=== PATIENT | female | born 1960 | race Caucasian/White ===

== ENCOUNTER → 2022-10-15 | Outpatient (CLI) | payer MEDICARE, MEDICAID ==
[~2022-10-15] VITALS: Ht 175.3 cm; Wt 67.1 kg
[~2022-10-15] MED LIST: ALBU90AE2 IH; BUDE10.2 IH; CARB-254 OP; DICL20GE TP; GABA300S2 PO; LORA10CA PO; MIRT-68 PO; MULT-567 PO; OXCA300T18 PO; ROSU5TAB13 PO; TIOT18CA2 IH
== END | disposition home or self-care (01) ==
LOC: PREOP 05:37
PROVIDERS: ATTEND Surgery
DX: Z01.818 Encounter for other preprocedural examination (principal); R19.5 Other fecal abnormalities; Z80.0 Family history of malignant neoplasm of digestive organs

== ENCOUNTER 2022-10-27 06:32 | Day surgery (SDC) | payer MEDICARE, MEDICAID ==
[~2022-10-27] VITALS: Ht 175.3 cm; Wt 67.1 kg
[2022-10-27] MEDS ORDERED: LACTATED RINGERS 1,000 ML IV STA (07:08)
[2022-10-27 07:17] VITALS: BP 113/69
[2022-10-27] MEDS ORDERED: PROPOFOL INJECTION 50 ML IV ONE (07:22)
[2022-10-27] MEDS ORDERED: MIDAZOLAM 2 MG/2 ML (VERSED) VIAL ONE (07:22)
[2022-10-27 08:05] VITALS: BP 105/54
--- NOTE | 2022-10-27 08:07 | Progress Note-Post Operative ---
Post-Operative Progess Note Surgeon (s)/Analysis Mgr (s) Surgeon TEGAN MENDOZA DO Analysis Mgr: n/a Pre-Operative Diagnosis positive cologuard, family hx colon cancer Post-Operative Diagnosis diverticulosis, colon polyps Procedure & Operative Findings Date of Procedure 10/27/22 Procedure Performed/Findings colonoscopy with hot biopsy polypectomy x3 Anesthesia Type per air traffic systems technician Estimated Blood Loss Estimated blood loss (mL): none Specimens/Packing Specimens Removed colon polyps TEGAN MENDOZA DO Oct 27, 2022 08:07
--- NOTE | 2022-10-27 08:08 | Discharge Inst-Simple/Standard ---
Discharge Inst-Standard Reconcile Patient Problems Problems Reviewed?: Yes Patient Instructions/Follow Up Plan of Care/Instructions/FU: f/u [address] Diaz Activity as Tolerated: Yes Discharge Diet: No Restrictions, Other Diet (high fiber) TEGAN DIAZ DO Oct 27, 2022 08:08
[2022-10-27 08:10] VITALS: BP 112/55
[2022-10-27 08:15] VITALS: BP 123/61
[2022-10-27 09:15] VITALS: BP 123/61
--- NOTE | 2022-10-27 13:00 | OPERATIVE REPORT ---
DATE OF SERVICE: 10/27/2022 PREOPERATIVE DIAGNOSIS: Positive Cologuard. POSTOPERATIVE DIAGNOSES: Colon polyps, diverticulosis. PROCEDURE: Colonoscopy with hot biopsy polypectomy x3. SURGEON: Tegan Diaz DO ANESTHESIA: Per INFUSION NURSE. ESTIMATED BLOOD LOSS: None. COMPLICATIONS: None. INDICATIONS: The patient is a 62-year-old female with positive Cologuard test. She understands risks and benefits of procedure and wished to proceed. Consent was signed in chart. DESCRIPTION OF PROCEDURE: The patient was taken to endoscopy suite, placed in left lateral recumbent position. Timeout was performed. Digital rectal exam was performed. No palpable polyps, masses or ulcerations. Scope was inserted in the rectum, advanced all the way to the cecum with minimal difficulty. Prep was adequate with irrigation and suction. Scope was slowly retracted back. No polyps, masses or ulcerations in the cecum. In the ascending colon, 2 polyps were present, which hot biopsy polypectomy was performed. Scope was then continuously retracted back. No polyps, masses or ulcerations within the remainder of the ascending, transverse, or descending colon. In the sigmoid colon, a flat polyp was present, which hot biopsy polypectomy was performed. Scope was then continuously retracted back into the rectum were there was no other polyps, masses or ulcerations. Scope was retroflexed in no other pathology. Scope was returned to its normal position, slowly withdrawn until completely removed. Throughout the colon, a minimal amount diverticulosis was present. RECOMMENDATIONS: The patient will need repeat colonoscopy in 3-5 years depending on pathology. For reevaluation, we will recommend high fiber diet due to diverticulosis. The patient will follow up in 2 weeks. Any issues before that, be seen at that time. Job ID: [id number] DocumentID: [id number] Dictated Date: 10/27/2022 08:45:59 Internet Marketing Coordinator Date: 10/27/2022 12:58:00 Dictated By: TEGAN DIAZ DO
--- NOTE | 2022-10-27 13:14 | Anesthesia-General Post-Op ---
MAC Patient Condition Mental Status/LOC: Same as Preop Cardiovascular: Satisfactory Nausea/Vomiting: Absent Respiratory: Satisfactory Pain: Controlled Complications: Absent Post Op Complications Complications None Follow Up Care/Instructions Patient Instructions None needed. Anesthesiology Discharge Order Discharge Order Patient is doing well, no complaints, stable vital signs, no apparent adverse anesthesia problems. No complications reported per nursing. MARIAN INGRAM CRNA Oct 27, 2022 13:14
== END 2022-10-27 09:31 | disposition home or self-care (01) ==
LOC: ENDO 06:32
PROVIDERS: ATTEND Surgery
DX: Z12.11 Encounter for screening for malignant neoplasm of colon (principal); K63.5 Polyp of colon; K57.30 Diverticulosis of large intestine without perforation or abscess without bleeding; Z80.0 Family history of malignant neoplasm of digestive organs; F17.210 Nicotine dependence, cigarettes, uncomplicated; Z28.310 Unvaccinated for COVID-19; Z79.02 Long term (current) use of antithrombotics/antiplatelets

== ENCOUNTER 2023-02-25 12:34 | Emergency (ER) | payer MEDICARE, MEDICAID ==
[~2023-02-25 12:34] MED LIST changes: -GABA300S2 PO; +GABA300S3 PO
[2023-02-25] MEDS ORDERED: ONDANSETRON 4 MG (ZOFRAN) ORAL DISSOLVE TAB PO STA (12:49)
--- NOTE | 2023-02-25 12:57 | ED Headache ---
General Chief Complaint: Head/Cervical Problems Stated Complaint: CHEATHAM; NAUSEA; HX BRAIN ANEURYSM Nursing Triage Note: PT REPORTS SHE HAS A HISTORY OF 2 BRAIN ANEURYSMS AND ABOUT 1155 THIS AM SHE BEGAN TO HAVE A STABBING HEADACHE ON THE TOP OF HER HEAD. SHE BECAME NAUSEATED AND WAS PROFUSELY SWEATING. SHE TOOK AN ANTIEMETIC AT HOME AND THE NAUSEA HAS MOST SUBSIDED. Source: patient History of Present Illness Date Seen by Provider: Feb 25, 2023 Time Seen by Provider: 12:36 Initial Comments 62-year-old female presenting with complaints of sudden onset stabbing headache with nausea. She states that started about 5 minutes before noon. She took a baby aspirin as well as a Dramamine for nausea. She did have an episode of sweating due to the pain. She denied any actual vomiting. She denied any injury or trauma. She was at home just doing stretching exercises for mobility when the headache came on. She had coiling of her aneurysm in her brain in November 2022. She had called and spoke with her neurologist's office out of [facility] and they advised her to come to the ER. She stated that she has had nausea intermittently since having the coiling done and they told her that that would be a long-term issue for her. She has not had the severe headache like today. Timing/Duration: 1/2 hour Severity/Quality: severe, stabbing Location: global Prior Headaches/Recent Trauma: occasional headaches Associated Symptoms: No confusion, No fatigue, No facial pain, No fever/chills, No flushing, No loss of consciousness; nausea/vomiting; No nasal congestion, No nasal drainage, No numbness in legs/feet, No rash, No seizures, No sinus infection, No stiff neck, No vision changes, No weakness Allergies and Home Medications Allergies Coded Allergies: Sulfa (Sulfonamide Antibiotics) (Unverified Allergy, Unknown, 10/15/22) barium iodide (Unverified Allergy, Unknown, 10/15/22) bee venom protein (honey bee) (Unverified Allergy, Unknown, 10/15/22) sulfamethoxazole (Unverified Allergy, Unknown, 10/15/22) trimethoprim (Unverified Allergy, Unknown, 10/15/22) Patient Home Medication List Home Medication List Reviewed: Yes Albuterol Sulfate (Proair Digihaler) 90 Mcg Aer.pw.bas, 90 MCG IH, (Reported) Entered as Reported by: TAHIRA ALBA on 10/15/22920 Budesonide/Formoterol Fumarate (Symbicort 160-4.5 Mcg Inhaler) 160 Mcg-4.5 Mcg/Actuation Hfa.aer.ad, 2 PUFF IH BID, (Reported) Entered as Reported by: TAHIRA ALBA on 10/15/22920 Carboxymethylcellulose Sodium (Artificial Tears) 1 % Drops, 15 ML OP, (Reported) Entered as Reported by: TAHIRA ALBA on 10/15/22920 Diclofenac Sodium (Voltaren Arthritis Pain) 1 % Gel..gram., 20 GM TP, (Reported) Entered as Reported by: TAHIRA ALBA on 10/15/22920 Gabapentin (Gabapentin) 300 Mg/6 Ml (6 Ml) Solution, 300 MG PO, (Reported) Entered as Reported by: TAHIRA ALBA on 10/15/22920 Loratadine (Claritin) 10 Mg Capsule, 10 MG PO, (Reported) Entered as Reported by: TAHIRA ALBA on 10/15/22920 Mirtazapine (Mirtazapine) 15 Mg Tablet, 15 MG PO, (Reported) Entered as Reported by: TAHIRA ALBA on 10/15/22920 Multivitamin (Multivitamins) 1 Each Tablet, 1 EACH PO, (Reported) Entered as Reported by: TAHIRA ALBA on 10/15/22920 Oxcarbazepine (Oxcarbazepine) 300 Mg Tablet, 300 MG PO, (Reported) Entered as Reported by: TAHIRA ALBA on 10/15/22920 Rosuvastatin Calcium (Rosuvastatin Calcium) 5 Mg Tablet, 5 MG PO, (Reported) Entered as Reported by: TAHIRA ALBA on 10/15/22920 Tiotropium Nelson (Spiriva) 18 Mcg Aerp, 1 INH IH, (Reported) Entered as Reported by: TAHIRA ALBA on 10/15/22920 Review of Systems Review of Systems Constitutional: No chills, No dizziness, No fever Eyes: Denies Blurred Vision, Denies Photophobia, Denies Vision Changes Ears, Nose, Mouth, Throat: no symptoms reported Respiratory: no symptoms reported Cardiovascular: no symptoms reported Gastrointestinal: nausea; No vomiting Genitourinary: No dysuria Musculoskeletal: no symptoms reported Skin: No rash Psychiatric/Neurological: Headache Past Xuiklwr-Uckskr-Jgdzig Hx Patient Social History Tobacco Use?: Yes Tobacco type used: Cigarettes Substance use?: No Alcohol Use?: No Pt feels they are or have been: Unable to obtain Immunizations Up To Date First/Initial COVID19 Vaccinat: N/A Second COVID19 Vaccination Jaguar: N/A Third COVID19 Vaccination Date: N/A Seasonal Allergies Seasonal Allergies: Yes Past Medical History Surgery/Hospitalization HX: Brain aneurysm with coiling Appendectomy Respiratory: Yes COPD Cardiac: Yes High Cholesterol Neurological: Yes TIA Genitourinary: No Gastrointestinal: Yes Hemorrhoids Musculoskeletal: Yes (OSTEOARTHRITIS, ANKYLOSING SPONDYLITIS) Osteoporosis, Rheumatoid Arthritis, Chronic Back Pain Endocrine: Yes (ADRENAL TUMORS, HYPOGLYCEMIA) HEENT: Yes (TRIFOCAL GLASSES) Cancer: Yes Cervical Did You Recieve Any Treatments: Yes What Type of Treatment Did You: Surgical Intervention Psychosocial: Yes PTSD, Depression Integumentary: Yes Psoriasis Blood Disorders: No Family Medical History Colon cancer Physical Exam Vital Signs Vital Signs - First Documented 02/25/23 12:41 Temp 35.0 Pulse 88 Resp 16 B/P (MAP) 174/77 (109) Pulse Ox 98 O2 Delivery Room Air Capillary Refill : Less Than 3 Seconds Height, Weight, BMI Height: '" Weight: lbs. oz. kg; 21.83 BMI Method: General Appearance: WD/WN, no apparent distress HEENT: PERRL/EOMI, pharynx normal Neck: non-tender, full range of motion, supple, normal inspection Cardiovascular: normal peripheral pulses, regular rate, rhythm Respiratory: chest non-tender, lungs clear, normal breath sounds Psychiatric: alert, oriented x 3 Crainal Nerves: normal hearing, normal speech, PERRL Coordination/Gait: normal gait (uses a cane for stability) Motor/Sensory: no motor deficit, no sensory deficit Skin: normal color, warm/dry Progress/Results/Core Measures Results/Orders Lab Results Laboratory Tests Test 02/25/23 13:32 Range/Units White Blood Count 8.9 4.3-11.0 10^3/uL Red Blood Count 4.29 3.80-5.11 10^6/uL Hemoglobin 13.6 11.5-16.0 g/dL Hematocrit 41 35-52 % Mean Corpuscular Volume 94 80-99 fL Mean Corpuscular Hemoglobin 32 25-34 pg Mean Corpuscular Hemoglobin Concent 34 32-36 g/dL Red Cell Distribution Width 14.6 H 10.0-14.5 % Platelet Count 264 130-400 10^3/uL Mean Platelet Volume 9.4 9.0-12.2 fL Immature Granulocyte % (Auto) 0 % Neutrophils (%) (Auto) 54 42-75 % Lymphocytes (%) (Auto) 36 12-44 % Monocytes (%) (Auto) 6 0-12 % Eosinophils (%) (Auto) 3 0-10 % Basophils (%) (Auto) 2 0-10 % Neutrophils # (Auto) 4.8 1.8-7.8 10^3/uL Lymphocytes # (Auto) 3.2 1.0-4.0 10^3/uL Monocytes # (Auto) 0.5 0.0-1.0 10^3/uL Eosinophils # (Auto) 0.3 0.0-0.3 10^3/uL Basophils # (Auto) 0.1 0.0-0.1 10^3/uL Immature Granulocyte # (Auto) 0.0 0.0-0.1 10^3/uL Prothrombin Time 12.2 12.2-14.7 SEC INR Comment 0.9 0.8-1.4 Activated Partial Thromboplast Time 33 24-35 SEC Sodium Level 138 135-145 MMOL/L Potassium Level 4.5 3.6-5.0 MMOL/L Chloride Level 102 98-107 MMOL/L Carbon Dioxide Level 26 21-32 MMOL/L Anion Gap 10 5-14 MMOL/L Blood Urea Nitrogen 13 7-18 MG/DL Creatinine 0.74 0.60-1.30 MG/DL Estimat Glomerular Filtration Rate 91 BUN/Creatinine Ratio 18 Glucose Level 103 70-105 MG/DL Calcium Level 8.9 8.5-10.1 MG/DL Corrected Calcium 9.1 8.5-10.1 MG/DL Total Bilirubin < 0.2 0.1-1.0 MG/DL Aspartate Amino Transf (AST/SGOT) 36 H 5-34 U/L Alanine Aminotransferase (ALT/SGPT) 30 0-55 U/L Alkaline Phosphatase 83 40-136 U/L Total Protein 6.4 6.4-8.2 GM/DL Albumin 3.8 3.2-4.5 GM/DL My Orders Orders - JESS HOLT MD Ct Head Wo (02/25/23 12:49) Ondansetron Oral Dissolve Tab (Zofran (02/25/23 12:49) Comprehensive Metabolic Panel (02/25/23 13:32) Ed Iv/Invasive Line Start (02/25/23 13:32) Cbc With Automated Diff (02/25/23 13:32) Protime With Inr (02/25/23 13:32) Partial Thromboplastin Time (02/25/23 13:32) Ketorolac Injection (Ketorolac Injection (02/25/23 13:32) Diphenhydramine Injection (Diphenhydram (02/25/23 13:32) Vital Signs/I&O 02/25/23 02/25/23 12:41 14:31 Temp 35.0 35.0 Pulse 88 84 Resp 16 16 B/P (MAP) 174/77 (109) 147/68 Pulse Ox 98 99 O2 Delivery Room Air Room Air Blood Pressure Mean: 109 Progress Progress Note #1: Progress Note Potential diagnosis of migraine headache, atypical headache, aneurysm bleeding. Obtain CT scan of the head without IV contrast to look for signs of bleeding. Offer Zofran 4 mg ODT for additional nausea effect beyond the Dramamine she had already taken. Progress Note #2: Time: 13:03 Progress Note On my personal review and interpretation of the CT scan of head without contrast I did not appreciate any acute hemorrhage or acute process. 1315 CT head without contrast read by radiologist as no acute process. Seen a 9 mm Lacunar infarct right caudate nucleus and basal ganglia. I tried calling to speak with Dr. Mccord, her Interventional neurologist, and had to leave a voice mail as I was not able to be connected with anyone to discuss her case. When reviewing the findings with the patient and her son she was relieved that they did not see any bleeding however she still complain of headache that was 4- 5 out of 10. Will start an IV and give Toradol and Benadryl for a migraine cocktail to see if that would help with pain while waiting on the [facility] provider to call back about if they want a CT angiography or any other testing done here. Since we are starting an IV and in case she does need additional testing we will obtain a CBC to check her blood count and platelets as well as a comprehensive metabolic profile to look at her electrolytes and kidney function and coagulation factors to ensure that she was not having a coagulopathy that again might be contributing to headache or slow leaking around the aneurysm. Progress Note #3: Time: 14:09 Progress Note I was able to finally speak with Matilda, the nurse for Dr. Mccord. She stated that they had been in clinic and she had spoke with Dr. Mccord about the imaging. Since patient did not have any aneurysm bleeding or bleeding on the CT head without contrast they did not feel there were any other imaging test would be needed. I did advise that we will try doing Toradol and Benadryl in addition to ODT Zofran for possible migraine cocktail to see if that would help her however I had not had a chance to check on her again since she got the medicine 20 or 30 minutes ago. They advised that they would like to see the images but that they did not need any additional testing at this time. When I reviewed with the patient the results and the recommendations from Matilda and Dr. Mccord she stated that she still had a headache and was getting some wavy lines in her vision. She does have a history of ocular migraines but stated that this felt different. I offered to do a dose of Decadron as a steroid to see if it might help with the headache and her son stated that the doctors at [facility] did not want her taking any steroids. They opted to try and go home and discharge and rest and see if the headache would get better. She was reassured that her CT head did not show bleeding and review of the lab work had not shown any abnormality with her electrolytes or blood counts were coagulation factors. Encouraged to rest in a cool dark room and return or seek care at [facility] if having worsening symptoms. Diagnostic Imaging Diagonstic Imaging: CT Plain Films/CT/US/NM/MRI: head Comments NAME: FILIPE CALDERON [facility] REC#: [id number] PT STATUS: REG ER : 1960 PHYSICIAN: JESS HOLT MD ADMIT DATE: 02/25/23/ER FS Draft Date of Exam:02/25/23 CT HEAD WO PROCEDURE: CT head without contrast. TECHNIQUE: Multiple contiguous axial images were obtained through the brain without the use of intravenous contrast. Auto Exposure Controls were utilized during the CT exam to meet ALARA standards for radiation dose reduction. INDICATION: Headache and nausea, status post endovascular coiling of the cerebral aneurysm. There is an embolization coil based in the middle cranial fossa eccentric to the right. This creates considerable beam hardening effect. The ventricles are normal in size, shape and position. There are no masses or hemorrhages. There are no extra-axial fluid collections. There is a 9 mm lacunar infarct in the right caudate nucleus. Age of this is indeterminate. IMPRESSION: Lacunar infarct right caudate nucleus and basal ganglia. Postprocedural changes from endovascular repair of an aneurysm. No acute abnormality seen. Dictated on workstation # [id number] Dict: 02/25/23 1308 Trans: 02/25/23 1312 [facility] [id number] Interpreted by: SIOBHAN JARA MD Electronically signed by: Reviewed: Reviewed by Me Departure Impression Primary Impression: Headache Qualified Codes: R51.9 - Headache, unspecified Additional Impressions: Nausea Status post coil embolization of cerebral aneurysm Disposition: HOME, SELF-CARE Condition: Stable Departure-Patient Inst. Decision time for Depature: 14:26 Referrals: PASQUALE BECKFORD APRN (PCP) Primary Care Physician LOLI WINSLOW DO (Family) Primary Care Physician Patient Instructions: Nausea and Vomiting, Adult ED, Headache, Adult ED Add. Discharge Instructions: Try to stay well-hydrated and drink plenty of fluids. Continue taking your prescription medicines as prescribed. Check back with your interventional neurologist through [facility] for continued concerns. All discharge instructions reviewed with patient and/or family. Voiced understanding. JESS HOLT MD Feb 25, 2023 12:57
--- NOTE | 2023-02-25 13:12 | Diagnostic Imaging Report ---
PROCEDURE: CT head without contrast. TECHNIQUE: Multiple contiguous axial images were obtained through the brain without the use of intravenous contrast. Auto Exposure Controls were utilized during the CT exam to meet ALARA standards for radiation dose reduction. INDICATION: Headache and nausea, status post endovascular coiling of the cerebral aneurysm. There is an embolization coil based in the middle cranial fossa eccentric to the right. This creates considerable beam hardening effect. The ventricles are normal in size, shape and position. There are no masses or hemorrhages. There are no extra-axial fluid collections. There is a 9 mm lacunar infarct in the right caudate nucleus. Age of this is indeterminate. IMPRESSION: Lacunar infarct right caudate nucleus and basal ganglia. Postprocedural changes from endovascular repair of an aneurysm. No acute abnormality seen. Dictated by: Dictated on workstation # [email or web address]
[2023-02-25] MEDS ORDERED: diphenhydrAMINE INJ 50 MG/ML VIAL IVP STA (13:32)
[2023-02-25] MEDS ORDERED: KETOROLAC INJ 15 MG/ML VIAL IVP STA (13:32)
[2023-02-25 13:39] LABS: BASOPHILS # (AUTO) 0.1 10^3/uL (0.0-0.1); BASOPHILS % (AUTO) 2 % (0-10); EOSINOPHILS # (AUTO) 0.3 10^3/uL (0.0-0.3); EOSINOPHILS % (AUTO) 3 % (0-10); HEMATOCRIT 41 % (35-52); HEMOGLOBIN 13.6 g/dL (11.5-16.0); LYMPHOCYTES # (AUTO) 3.2 10^3/uL (1.0-4.0); LYMPHOCYTES % (AUTO) 36 % (12-44); MEAN CORPUSCULAR HEMOGLOBIN 32 pg (25-34); MEAN CORPUSCULAR HGB CONC 34 g/dL (32-36); MEAN CORPUSCULAR VOLUME 94 fL (80-99); MEAN PLATELET VOLUME 9.4 fL (9.0-12.2); MONOCYTES # (AUTO) 0.5 10^3/uL (0.0-1.0); MONOCYTES % (AUTO) 6 % (0-12); NEUTROPHILS # (AUTO) 4.8 10^3/uL (1.8-7.8); NEUTROPHILS % (AUTO) 54 % (42-75); PLATELET COUNT 264 10^3/uL (130-400); WHITE BLOOD COUNT 8.9 10^3/uL (4.3-11.0)
[2023-02-25 13:54] LABS: INR 0.9 (0.8-1.4); PROTHROMBIN TIME PATIENT 12.2 SEC (12.2-14.7)
[2023-02-25 14:08] LABS: ALANINE AMINOTRANSFERASE 30 U/L (0-55); ALKALINE PHOSPHATASE 83 U/L (40-136); BILIRUBIN,TOTAL < 0.2 MG/DL (0.1-1.0); BUN/CREATININE RATIO 18; CALCIUM 8.9 MG/DL (8.5-10.1); CARBON DIOXIDE 26 MMOL/L (21-32); CHLORIDE 102 MMOL/L (98-107); CREATININE SERUM 0.74 MG/DL (0.60-1.30); GFR ESTIMATED 91; GLUCOSE 103 MG/DL (70-105); POTASSIUM 4.5 MMOL/L (3.6-5.0); SODIUM 138 MMOL/L (135-145); TOTAL PROTEIN 6.4 GM/DL (6.4-8.2)
[2023-02-25 14:09] LABS: ALBUMIN 3.8 GM/DL (3.2-4.5)
[2023-02-25 14:31] VITALS: BP 147/68
== END 2023-02-25 14:32 | disposition home or self-care (01) ==
LOC: EDUNIT# 12:34 → ER FS 12:35
DX: R51.9 Headache, unspecified (principal); R11.0 Nausea; F17.210 Nicotine dependence, cigarettes, uncomplicated; Z28.310 Unvaccinated for COVID-19; Z95.828 Presence of other vascular implants and grafts; Z86.69 Personal history of other diseases of the nervous system and sense organs
CPT/HCPCS: 36415; 70450; 80053; 85025; 85610; 85730